=== PATIENT | male | born 1950 | race Caucasian/White ===

== ENCOUNTER 2021-02-10 20:50 | Observation (INO) ==
[2021-02-11] MEDS ORDERED: Naloxone 0.4 MG/ML INJ IVP PRN (05:00)
[2021-02-11] MEDS ORDERED: *HR* HYDROcodone/Acet 5/325 mg TABLET PO PRN (05:00)
[2021-02-11] MEDS ORDERED: Ondansetron 4 MG/2 ML VIAL IVP PRN (05:00)
[2021-02-11] MEDS ORDERED: Melatonin 3 MG TABLET PO PRN (05:00)
[2021-02-11] MEDS ORDERED: Acetaminophen 325 MG TABLET PO PRN (05:00)
[2021-02-11] MEDS: *HR* OxyCODONE Immed Rel 5 MG TABLET PO PRN (05:20)
[2021-02-11] MEDS: Pantoprazole 40 MG VIAL IVP SCH ×2 (05:21→18:25)
[2021-02-11] MEDS ORDERED: *HR* LORazepam 0.5 MG TABLET PO PRN (05:52)
[2021-02-11 05:53] LABS: Hematocrit 29.2 % (37.5-50.1); Hemoglobin 9.5 g/dL (12.9-16.9); Immature Platelets 13.9 % (1.1-6.1); Mean Corpuscular HGB Conc 32.5 g/dL (31.6-35.5); Mean Corpuscular Hemoglobin 26.4 pg (28.0-33.3); Mean Corpuscular Volume 81.1 fL (83.0-100.0); White Blood Count 5.2 K/mcL (4.3-11.1)
[2021-02-11 06:08] LABS: Platelet Count 19 K/mcL (140-400)
[2021-02-11 06:14] LABS: INR 1.4; Prothrombin Time 15.6 Seconds (9.4-12.1)
[2021-02-11 06:19] LABS: Alanine Aminotransferase 10 Units/L (7-52); Albumin 3.9 g/dL (3.5-5.7); Albumin/Globulin Ratio 1.4 (1.1-2.2); Alkaline Phosphatase 54 Units/L (34-104); Aspartate Amino Transferase 21 Units/L (13-39); BUN/Creatinine Ratio 13 (6-26); Bilirubin,Total 1.4 mg/dL (0.3-1.0); Blood Urea Nitrogen 21 mg/dL (8-23); Carbon Dioxide 28 mEq/L (23-29); Chloride 106 mEq/L (98-107); Globulin 2.8 g/dL (2.4-3.5); Glucose 124 mg/dL (70-105); Osmolality,Calculated 296 (280-300); Potassium 4.8 mEq/L (3.5-5.1); Sodium 141 mEq/L (136-145); Total Protein 6.7 g/dL (6.4-8.9); Troponin I < 0.03 ng/mL (< 0.04); eGFR For African Americans 52 (> 60); eGFR For Non-African Americans 43 (> 60)
[2021-02-11 06:26] LABS: Lymphocytes # 1.9 K/mcL (0.6-4.6); Monocytes # 1.6 K/mcL (0.0-1.3); Neutrophils # 1.8 K/mcL (1.6-8.9); Reactive Lymphocytes Present (Not Present)
[2021-02-11 06:27] LABS: Platelet Estimate Marked Decrease (Normal)
[2021-02-11] MEDS: Cholecalciferol (D-3) 1,000 UNIT (25MCG) TABLET PO SCH (09:07)
[2021-02-11 09:57] LABS: % Iron Saturation 24 % (20-55); Iron 121 mcg/dL (65-175); Lactate Dehydrogenase 146 Units/L (140-271); Transferrin 354 mg/dL (203-362)
[2021-02-11 10:15] LABS: Ferritin 13 ng/mL (20-250)
[2021-02-11 10:20] LABS: Folate 9.2 ng/mL (3.0-16.0)
[2021-02-11 11:02] LABS: Influenza A PCR Negative (Negative); Influenza B PCR Negative (Negative); Resp. Syncytial Virus PCR Negative (Negative)
[2021-02-11 11:03] LABS: SARS-CoV-2 by PCR (In House) Negative (Negative)
[2021-02-11] MEDS ORDERED: 0.9 % Sodium Chloride 250 ML ONE ×3 (11:46→22:52)
[2021-02-11] MEDS ORDERED: Iron Sucrose Complex 400 MG in 0.9 % Sodium Chloride 250 ML IVPB ONE (17:45)
[2021-02-11] MEDS ORDERED: D5% in Water 1,000 ML IVC PRN (19:52)
[2021-02-11] MEDS ORDERED: Dextrose Gel 15 GM/37.5 ML TUBE PO PRN ×2 (19:52)
[2021-02-11] MEDS ORDERED: *HR* Dextrose 50 % in Water (Vial) 50 ML VIAL IVP PRN (19:52)
[2021-02-11] MEDS ORDERED: Insulin LISPRO 300 UNITS/3 ML VIAL SUBQ SCH (21:00)
[2021-02-11 21:30] LABS: Hematocrit 29.8 % (37.5-50.1)
[2021-02-11 21:40] LABS: Fibrinogen 216 mg/dL (169-393)
[2021-02-11 21:41] LABS: Basophils % 0.5 %; Eosinophils % 0.5 %; Hemoglobin 9.6 g/dL (12.9-16.9); Lymphocytes # 0.6 K/mcL (0.6-4.6); Lymphocytes % 9.5 %; Mean Corpuscular HGB Conc 32.2 g/dL (31.6-35.5); Mean Corpuscular Hemoglobin 26.2 pg (28.0-33.3); Mean Corpuscular Volume 81.2 fL (83.0-100.0); Monocytes # 3.1 K/mcL (0.0-1.3); Monocytes % 52.4 %; Neutrophils # 2.1 K/mcL (1.6-8.9); Red Blood Count 3.67 M/mcL (4.19-5.50); Segmented Neutrophils % 35.1 %; White Blood Count 5.9 K/mcL (4.3-11.1)
[2021-02-11 21:44] LABS: D-Dimer 801 ng/mLFEU (0-500)
[2021-02-11 22:12] LABS: Platelet Estimate Marked Decrease (Normal)
[2021-02-11 22:13] LABS: Reactive Lymphocytes Present (Not Present)
[2021-02-12] MEDS: Pantoprazole 40 MG VIAL IVP SCH ×2 (04:51→16:59)
[2021-02-12 05:12] LABS: INR 1.5; Prothrombin Time 17.1 Seconds (9.4-12.1)
[2021-02-12 05:15] LABS: Activated Partial Thrombo Time 41.4 Seconds (26.0-36.0)
[2021-02-12 05:23] LABS: Basophils % 0.5 %; Eosinophils % 0.5 %; Hematocrit 27.5 % (37.5-50.1); Hemoglobin 8.7 g/dL (12.9-16.9); Immature Granulocytes % 1.3 % (0-4); Immature Platelets 9.9 % (1.1-6.1); Lymphocytes # 0.7 K/mcL (0.6-4.6); Lymphocytes % 11.3 %; Mean Corpuscular HGB Conc 31.6 g/dL (31.6-35.5); Mean Corpuscular Hemoglobin 25.9 pg (28.0-33.3); Mean Corpuscular Volume 81.8 fL (83.0-100.0); Mean Platelet Volume 11.6 fL (9.4-12.4); Monocytes # 3.3 K/mcL (0.0-1.3); Monocytes % 56.1 %; Neutrophils # 1.8 K/mcL (1.6-8.9); Red Blood Count 3.36 M/mcL (4.19-5.50); Red Cell Distribution Width 15.2 % (11.5-14.5); Segmented Neutrophils % 30.3 %; White Blood Count 5.9 K/mcL (4.3-11.1)
[2021-02-12 05:25] LABS: BUN/Creatinine Ratio 14 (6-26); Blood Urea Nitrogen 20 mg/dL (8-23); Calcium 8.7 mg/dL (8.6-10.3); Carbon Dioxide 27 mEq/L (23-29); Chloride 105 mEq/L (98-107); Glucose 173 mg/dL (70-105); Osmolality,Calculated 297 (280-300); Potassium 4.2 mEq/L (3.5-5.1); Sodium 140 mEq/L (136-145); eGFR For African Americans > 60 (> 60); eGFR For Non-African Americans 50 (> 60)
[2021-02-12 05:51] LABS: Platelet Count 36 K/mcL (140-400)
[2021-02-12 05:52] LABS: Platelet Estimate Marked Decrease (Normal); Reactive Lymphocytes Present (Not Present)
[2021-02-12] MEDS: Cholecalciferol (D-3) 1,000 UNIT (25MCG) TABLET PO SCH (07:37)
[2021-02-12] MEDS: Insulin LISPRO 300 UNITS/3 ML VIAL SUBQ SCH ×3 (07:38→16:58)
[2021-02-12] MEDS ORDERED: *HR* FentaNYL (PF) 100 MCG/2 ML VIAL IVP ONE (10:12)
[2021-02-12] MEDS ORDERED: *HR* Midazolam HCl 2 MG/2 ML VIAL IVP ONE (10:12)
[2021-02-12] MEDS: *HR* OxyCODONE Immed Rel 5 MG TABLET PO PRN (18:01)
[2021-02-12 18:38] VITALS: BP 144/65
[2021-02-14 07:10] LABS: HCV Quant Log NOT DETECTED log IU/mL
[2021-02-14 11:09] LABS: HCV Quant Interpretation NOT DETECTED (Not Detected)
[2021-02-15 09:49] LABS: PNH PMNs Percent 0.001 % (0.000-0.004); PNH RBCs Percent 0.001 % (0.000-0.004)
== END 2021-02-12 20:00 | disposition home or self-care (01) ==
LOC: 3ANU
PROVIDERS: ADMIT Internal Medicine; ATTEND Internal Medicine